=== PATIENT | male | born 1945 | race Caucasian/White ===

== ENCOUNTER 2016-03-16 09:06 | Outpatient (CLI) | payer OTHER ==
[~2016-03-16 09:06] MED LIST: ALPRAZOLAM0.25 MG PO; CHLORHEXIDINE PO; CLOBETASOL PRO0.055 TOP; ERYTHROMYCIN5 MG/GM OP; KLOR-CON 1010 MEQ PO; LASIX40 MG PO; LUNESTA1 MG PO; MIRALAX EQUIVAL17 GM PO; MORPHINE SULFAT15 MG PO; PREDNISONE5 MG PO; TOPROL XL50 MG PO; VITAMIN B-1000 MCG/M IM; XANAX0.25 MG PO
== END 2016-03-16 23:00 ==
LOC: LAB SRH 09:06
DX: B18.2 Chronic viral hepatitis C (principal)
CPT/HCPCS: 90074; 94060

== ENCOUNTER 2016-08-21 23:00 | Emergency (ER) | payer OTHER ==
--- NOTE | 2016-08-21 23:30 | DIAGNOSTIC IMAGING REPORT ---
PROCEDURE: CT HEAD WITHOUT CONTRAST INDICATION: VERTIGO/DIZZINESS TECHNIQUE: Noncontrast axial images with sagittal and coronal reformations. COMPARISON: Brain MRI 11/09/[address] 11/08/2015. FINDINGS: Mild cortical atrophy and white matter chronic ischemic changes. Normal ventricular system. No evidence of acute intracranial process. Mild right maxillary sinus disease. Mastoids are clear. No significant interval change. IMPRESSION: 1. No acute intracranial abnormality 2. Mild atrophy and white matter chronic ischemic changes 3. Findings discussed with Dr. Ruvalcaba at 11:28 p.m., [place] Standard Time
--- NOTE | 2016-08-22 00:33 | ED ORDER SUMMARY ---
..... Patient: RAVEN COOK [facility] VisitID: [id number] [place] [address] 71y, M Registration Date/Time: 08/21/2016 ORDER SHEET Weight: 108.8 kg (stated) Allergies: Mangoes, Sulfa Antibiotics GENERAL ORDERS: Exhaust Machine Operator (Continuous) (22:58 08/21/2016 PHutchinson DO) (0:16 JRomanelli R.N.) UA-Culture if indicated Urgent (22:59 08/21/2016 PHutchinson DO) (Ack 23:57 RKaruga) Cardiac Panel Stat (22:59 08/21/2016 PHutchinson DO) (23:44 JSanders R.N.) BNP Urgent (22:59 08/21/2016 PHutchinson DO) (23:44 JSanders R.N.) Amylase Urgent (22:59 08/21/2016 PHutchinson DO) (23:44 JSanders R.N.) TSH Urgent (22:59 08/21/2016 PHutchinson DO) (23:44 JSanders R.N.) Ethyl Alcohol Urgent (22:59 08/21/2016 PHutchinson DO) (23:44 JSanders R.N.) Pulse oximeter (22:59 08/21/2016 PHutchinson DO) (0:16 JRomanelli R.N.) EKG - ER Stat (22:59 08/21/2016 PHutchinson DO) (23:16 RKaruga) Vitals (22:59 08/21/2016 PHutchinson DO) (23:15 SSambou R.N.) CT Head wo Cont Urgent (23:04 08/21/2016 PHutchinson DO) (23:18 JRomanelli R.N.) MEDICATION ORDERS: IV FLUIDS: IV NS : initial bolus 1000 mL (1000 mL/hr), then 1000 mL/hr for X2 (NOW) (22:58 08/21/2016 PHutchinson DO) (23:17 SSambou R.N.) Zofran IV 4 mg (NOW) (22:59 08/21/2016 PHutchinson DO) (23:18 SSambou R.N.) Protonix IVP 40mg 40 mg (Mix in NS 10ml over 2min) (22:59 08/21/2016 [facility]) (23:18 SSambou R.N.) Valium IV 2 mg (HIGH ALERT MEDICATION, NOW) (23:05 08/21/2016 [facility]) (23:33 SSambpedro R.N.) Ativan IV 1 mg (HIGH ALERT MEDICATION, NOW) (00:27 08/22/2016 [facility]) (Cancelled: Other0:54 [facility]) ORDER SHEET NOTES: [Electronically signed by Sheriff Azeb Harris (00:55 08/22/2016)] [Electronically signed by Gaurang Ruvalcaba DO (00:57 08/22/2016)] [Electronically locked/signed by Sheriff Azeb Harris (00:55 08/22/2016)]
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
--- NOTE | 2016-08-22 00:33 | ED ORDER SUMMARY ---
..... Patient: RAVEN COOK OrderSheet [facility] VisitID: [id number] [place] [address] 71y, M Registration Date/Time: 08/21/2016 ORDER SHEET Weight: 108.8 kg (stated) Allergies: Mangoes, Sulfa Antibiotics GENERAL ORDERS: Education And Training Manager (Continuous) (22:58 08/21/2016 PHutchinson DO) (0:16 JRomanelli R.N.) UA-Culture if indicated Urgent (22:59 08/21/2016 PHutchinson DO) (Ack 23:57 RKaruga) Cardiac Panel Stat (22:59 08/21/2016 PHutchinson DO) (23:44 JSanders R.N.) BNP Urgent (22:59 08/21/2016 PHutchinson DO) (23:44 JSanders R.N.) Amylase Urgent (22:59 08/21/2016 PHutchinson DO) (23:44 JSanders R.N.) TSH Urgent (22:59 08/21/2016 PHutchinson DO) (23:44 JSanders R.N.) Ethyl Alcohol Urgent (22:59 08/21/2016 PHutchinson DO) (23:44 JSanders R.N.) Pulse oximeter (22:59 08/21/2016 PHutchinson DO) (0:16 JRomanelli R.N.) EKG - ER Stat (22:59 08/21/2016 PHutchinson DO) (23:16 RKaruga) Vitals (22:59 08/21/2016 PHutchinson DO) (23:15 SSambou R.N.) CT Head wo Cont Urgent (23:04 08/21/2016 PHutchinson DO) (23:18 JRomanelli R.N.) MEDICATION ORDERS: IV FLUIDS: IV NS : initial bolus 1000 mL (1000 mL/hr), then 1000 mL/hr for X2 (NOW) (22:58 08/21/2016 PHutchinson DO) (23:17 SSambou R.N.) Zofran IV 4 mg (NOW) (22:59 08/21/2016 PHutchinson DO) (23:18 SSambou R.N.) Protonix IVP 40mg 40 mg (Mix in NS 10ml over 2min) (22:59 08/21/2016 [facility]) (23:18 SSambou R.N.) Valium IV 2 mg (HIGH ALERT MEDICATION, NOW) (23:05 08/21/2016 [facility]) (23:33 SSambpedro R.N.) Ativan IV 1 mg (HIGH ALERT MEDICATION, NOW) (00:27 08/22/2016 [facility]) (Cancelled: Other0:54 [facility]) ORDER SHEET NOTES: [Electronically signed by Sheriff Azeb Harris (00:55 08/22/2016)] [Electronically signed by Gaurang Ruvalcaba DO (00:57 08/22/2016)] [Electronically locked/signed by Sheriff Azeb Harris (00:55 08/22/2016)]
--- NOTE | 2016-08-22 00:58 | ED MAR SUMMARY ---
..... Medication Administration Record [facility] [address] [place] [address] Patient: RAVEN COOK Visit ID: [id number] 71y, M Weight: 108.8 kg Height/Length: 76 in BMI: 29.2 ALLERGIES: Mangoes, Sulfa Antibiotics Start 23:17 08/21/2016 Sheriff Harris R.N. Medication Administered: IV NS (SALINE), Dose: IV Fluids, Bolus: 1000 mL wide open, Dispensed: 1000 mL bag, Site: #2 left wrist. Medication Ordered: IV NS : initial bolus 1000 mL (1000 mL/hr), then 1000 mL/hr for X2 (NOW). Given 23:18 08/21/2016 Sheriff Harris R.N. Medication Administered: ZOFRAN [IVP] (ONDANSETRON HCL), Dose: 4 mg IVP over 1 minute(s), Site: #1 left wrist. Medication Ordered: Zofran IV 4 mg (NOW). Given 23:18 08/21/2016 Sheriff Harris R.NShivani Medication Administered: PROTONIX 40MG [IVP] (PANTOPRAZOLE SODIUM), Dose: 40 mg IVP over 3 minute(s), Site: #1 left wrist. Medication Ordered: Protonix IVP 40mg 40 mg (Mix in NS 10ml over 2min). Given 23:32 08/21/2016 Sheriff Harris R.NShivani Medication Administered: VALIUM [IVP] (DIAZEPAM), Dose: 2 mg IVP over 1 minute(s), Site: #1 left wrist. Medication Ordered: Valium IV 2 mg (HIGH ALERT MEDICATION, NOW).
--- NOTE | 2016-08-22 00:58 | ED MED RECONCILIATION SUMMARY ---
Patient: RAVEN COOK Medication Reconciliation Report [facility] VisitID: [id number] [place] [address] 71y, M Registration Date/Time: 08/21/2016 Weight: 108.8 kg Height/Length: 76 in. BMI: 29.2 ALLERGIES: Mangoes, Sulfa Antibiotics The patient's Home Medications are listed below: CONTINUE TAKING THE FOLLOWING MEDICATIONS: ALPRAZolam Oral 1 mg, 3x a day ASA Oral 325mg daily Epclusa 400-100 mg, daily Lasix Oral 40 mg, leg swelling Metoprolol 100 mg, daily MiraLax Oral 1 packet, daily, not using Morphine IR 30mg, 4x a day Ondansetron Oral 4 mg, daily The source(s) of the original Home Medication information: patient The following Medications were given to the patient in the Emergency Department: IV NS IV Fluids bolus 1000 mL wide open, administered: 08/21/2016 11:17:00 PM Zofran [IVP] IVP 4 mg, administered: 08/21/2016 11:18:00 PM PROTONIX 40MG [IVP] IVP 40 mg, administered: 08/21/2016 11:18:00 PM Valium [IVP] IVP 2 mg, administered: 08/21/2016 11:32:00 PM The following Medications were prescribed to the patient: Zofran 4 mg: Take 1 orally every six hours as needed for nausea/vomiting. Dispense ten (10). No refills. Substitution is permissible. -- Gaurang Ruvalcaba DO Meclizine 25 mg: Take 1 tablet orally every 8 hours as needed for dizziness. Dispense thirty (30). No refills. -- Gaurang Ruvalcaba DO
--- NOTE | 2016-08-22 00:58 | ED MAR SUMMARY ---
..... Medication Administration Record [facility] [address] [place] [place] [address] Patient: RAVEN COOK Visit ID: [id number] 71y, M Weight: 108.8 kg Height/Length: 76 in BMI: 29.2 ALLERGIES: Mangoes, Sulfa Antibiotics Start 23:17 08/21/2016 Sheriff Harris R.N. Medication Administered: IV NS (SALINE), Dose: IV Fluids, Bolus: 1000 mL wide open, Dispensed: 1000 mL bag, Site: #2 left wrist. Medication Ordered: IV NS : initial bolus 1000 mL (1000 mL/hr), then 1000 mL/hr for X2 (NOW). Given 23:18 08/21/2016 Sheriff Harris R.N. Medication Administered: ZOFRAN [IVP] (ONDANSETRON HCL), Dose: 4 mg IVP over 1 minute(s), Site: #1 left wrist. Medication Ordered: Zofran IV 4 mg (NOW). Given 23:18 08/21/2016 Sheriff Harris R.NShivani Medication Administered: PROTONIX 40MG [IVP] (PANTOPRAZOLE SODIUM), Dose: 40 mg IVP over 3 minute(s), Site: #1 left wrist. Medication Ordered: Protonix IVP 40mg 40 mg (Mix in NS 10ml over 2min). Given 23:32 08/21/2016 Sheriff Harris R.NShivani Medication Administered: VALIUM [IVP] (DIAZEPAM), Dose: 2 mg IVP over 1 minute(s), Site: #1 left wrist. Medication Ordered: Valium IV 2 mg (HIGH ALERT MEDICATION, NOW).
--- NOTE | 2016-08-22 00:58 | ED DISCHARGE INSTRUCTIONS ---
Patient: RAVEN COOK General Instructions [facility] VisitID: [id number] [place] [address] 71y, M Registration Date/Time: 08/21/2016 Vomiting with nausea. Not intractable or bilious. Recurrent vertigo of unknown cause. Abnormal EKG: first degree heart block and left bundle branch block. Essential hypertension. INSTRUCTIONS Do not work for three days. Drink plenty of fluids. No alcohol. Warnings: Further evaluation is necessary in order to obtain test results and conduct further tests (You may need a repeat MRI of your brain and consideration for a mammogram). It is very important to follow up with a physician. SEDATIVE MEDICATION: You were given sedative medication during your visit. Do not drive or operate dangerous machinery. CONTROLLED SUBSTANCE WARNINGS. GENERAL WARNINGS: Return or contact your physician immediately if your condition worsens or changes unexpectedly, if not improving as expected, or if other problems arise. Your Current Medications: CONTINUE TAKING THE FOLLOWING MEDICATIONS: ALPRAZolam Oral : 1 mg 3x a day. ASA Oral : 325mg daily. Epclusa* : 400-100 mg daily. Lasix Oral : 40 mg, prn, leg swelling. Metoprolol* : 100 mg daily. MiraLax Oral : 1 packet daily, not using. Morphine IR* : 30mg 4x a day. Ondansetron Oral : 4 mg daily. Prescription Medications: Zofran 4 mg: Take 1 orally every six hours as needed for nausea/vomiting. Dispense ten (10). No refills. Substitution is permissible. Meclizine 25 mg: Take 1 tablet orally every 8 hours as needed for dizziness. Dispense thirty (30). No refills. Follow-up: Follow up with your doctor Phyllis tomorrow. Screening today revealed the patient's blood pressure to be in the hypertensive range. The patient should follow up with a primary care provider for blood pressure management. ADDITIONAL INFORMATION Vomiting [6Yr-Adult] Vomiting is a common symptom that may be due to different causes. These include gastroenteritis ("stomach flu"), food poisoning and gastritis. There are other more serious causes of vomiting which may be hard to diagnose early in the illness. Therefore, it is important to watch for the warning signs listed below. The main danger from repeated vomiting is dehydration. This is due to excess loss of water and minerals from the body. When this occurs, body fluids must be replaced. Home Care: If symptoms are severe, rest at home for the next 24 hours. You may use acetaminophen (Tylenol) or ibuprofen (Motrin, Advil) to control fever, unless another medicine was prescribed. [NOTE : If you have chronic liver or kidney disease or ever had a stomach ulcer or GI bleeding, talk with your doctor before using these medicines.] (Aspirin should never be used in anyone under 18 years of age who is ill with a fever. It may cause severe liver damage.) Avoid tobacco and alcohol use, which may worsen your symptoms. If medicines for vomiting were prescribed, take as directed. Once vomiting stops, then follow these guidelines: During The First 12-24 Hours follow the diet below: FRUIT JUICES: Apple, grape juice, clear fruit drinks, and electrolyte replacement drinks. BEVERAGES: Soft drinks without caffeine; mineral water (plain or flavored), decaffeinated tea and coffee. SOUPS: Clear broth, consomm and bouillon DESSERTS: Plain gelatin, popsicles and fruit juice bars. As you feel better, you may add 6-8 ounces of yogurt per day. During The Next 24 Hours you may add the following to the above: Hot cereal, plain toast, bread, rolls, crackers Plain noodles, rice, mashed potatoes, chicken noodle or rice soup Unsweetened canned fruit (avoid pineapple), bananas Limit caffeine and chocolate. No spices or seasonings except salt. During The Next 24 Hours Gradually resume a normal diet, as you feel better and your symptoms lessen. Follow Up with your doctor as advised if you are not improving over the next 2-3 days. Get Prompt Medical Attention if any of the following occur: Constant right-sided lower abdominal pain or increasing general abdominal pain Continued vomiting (unable to keep liquids down) for 24 hours Frequent diarrhea (more than 5 times a day); blood (red or black color) or mucus in diarrhea Reduced urine output or extreme thirst Weakness, dizziness or fainting Unusually drowsy or confused Fever of 100.4F (38C) oral or higher, not better with fever medication Yellow color of the eyes or skin High Blood Pressure --Established High Blood Pressure (Hypertension) is a chronic disease. The cause is unknown in most cases. It can usually be controlled with lifestyle changes and/or medicines. Symptoms of high blood pressure may include headache, dizziness, visual changes, chest pain and shortness of breath. Sometimes it causes no symptoms at all. However, even if there are no symptoms, untreated high blood pressure increases the risk of heart attack, also known as acute myocardial infarction, or AMI, and stroke. It is a serious health risk and should not be ignored. A normal blood pressure is 120/80 or less. The first (top) number is the "systolic" pressure. The second (bottom) number is the "diastolic" pressure. Hypertension exists when either the top number is 140 or higher, OR the bottom number is 90 or higher on repeated measurements. Home Care: All patients with high blood pressure should do the following to lower their pressure. If you are on medicines, then these methods may reduce or eliminate your need for medicines in the future. Begin a weight loss program if you are overweight. Reduce your salt intake. Avoid high salt foods (olives, pickles, smoked meats, salted potato chips, etc.). Do not add salt to your food at the table. Use only small amounts of salt when cooking. Begin an exercise program. Discuss with your doctor what type of exercise program would be best for you. It doesn't have to be difficult. Even brisk walking for 20 minutes three times a week is a good form of exercise. Avoid medicines which contain heart stimulants. This includes many cold and sinus decongestant pills and sprays as well as diet pills. Check the warnings about hypertension on the label. Stimulants such as amphetamine or cocaine could be lethal for someone with hypertension. Never take these. Limit your caffeine intake or switch to caffeine-free products. Stop smoking. If you are a long-time smoker, this can be hard. Enroll in a stop-smoking program to improve your chance of success. Learning how to handle stress better is an important part of any program to lower blood pressure. Learn about relaxation methods such as meditation, yoga or biofeedback. If medicines were prescribed, take them exactly as directed. Missing doses may cause your blood pressure get out of control. Consider buying an automatic blood pressure machine (available at most pharmacies). Use this to monitor your blood pressure at home and report the results to your doctor. Follow Up: Regular visits to your own physician for blood pressure checks and medicine adjustment is an important part of your care. Make a follow-up appointment as directed by our staff. Get Prompt Medical Attention if any of the following occur: Chest pain or shortness of breath Severe headache Throbbing or rushing sound in the ears Nosebleed Sudden severe abdominal pain Extreme drowsiness, confusion or fainting Dizziness or vertigo (dizziness with spinning sensation) Weakness of an arm or leg or one side of the face Difficulty with speech or vision Vertigo [Unknown Cause] The "inner ear" is located behind the middle ear. It is part of the balance center of your body. Disease of the inner ear causes vertigo -- a false feeling of motion. It feels as if you or the room is spinning. A vertigo attack may cause sudden nausea, vomiting and heavy sweating. Severe vertigo causes a loss of balance and can cause you to fall. During vertigo, small head movements and changes in body position will often make the symptoms worse. The causes of vertigo include: Inflammation of the inner ear Disease of the nerves to the inner ear Movement of calcium particles in the inner ear Poor blood flow to the balance centers of the brain An episode of vertigo may last seconds, minutes or hours. Once you are over the first episode, it may never return. However, sometimes symptoms may recur off and on over several weeks or longer, depending on the cause. There may be ringing in the ears or hearing loss, which may be temporary or permanent. Home Care: If symptoms are severe, rest quietly in bed. Change positions very slowly. There is usually one position that will feel best, such as lying on one side or lying on your back with your head slightly raised on pillows. Do not drive or work with dangerous machinery for one week after symptoms go away, in case the symptoms suddenly return. Take medicine as prescribed to relieve your symptoms. Unless another medicine was prescribed for nausea, vomiting and vertigo, you may use [id number] motion sickness pills, such as meclizine (Bonine, Bonamine, Antivert) or dimenhydrinate (Dramamine). Follow Up with your doctor or as directed by our staff. Tell the doctor if your ears keep ringing, or if your hearing does not return to normal. Get Prompt Medical Attention if any of the following occur: Vertigo gets worse and is not controlled by medicine prescribed Repeated vomiting not relieved by medicine prescribed Increased weakness or fainting Severe headache or unusually drowsy or confused Weakness of an arm or leg or one side of the face Difficulty with speech or vision Ondansetron Oral disintegrating tablet What is this medicine? ONDANSETRON (on IRON se eusebio) is used to treat nausea and vomiting caused by chemotherapy. It is also used to prevent or treat nausea and vomiting after surgery. How should I use this medicine? These tablets are made to dissolve in the mouth. Do not try to push the tablet through the foil backing. With dry hands, peel away the foil backing and gently remove the tablet. Place the tablet in the mouth and allow it to dissolve, then swallow. While you may take these tablets with water, it is not necessary to do so. Talk to your sports book board attendant regarding the use of this medicine in children. Special care may be needed. What side effects may I notice from receiving this medicine? Side effects that you should report to your doctor or health direct care counselor as soon as possible: allergic reactions like skin rash, itching or hives, swelling of the face, lips, or tongue breathing problems dizziness fast or irregular heartbeat feeling faint or lightheaded, falls fever and chills swelling of the hands and feet tightness in the chest Side effects that usually do not require medical attention (report to your doctor or health direct care counselor if they continue or are bothersome): constipation or diarrhea headache What may interact with this medicine? Do not take this medicine with any of the following medications: -apomorphine -cisapride -dofetilide -dronedarone -pimozide -thioridazine -ziprasidone This medicine may also interact with the following medications: -carbamazepine -phenytoin -rifampicin -tramadol -other medicines that prolong the QT interval (cause an abnormal heart rhythm) What if I miss a dose? If you miss a dose, take it as soon as you can. If it is almost time for your next dose, take only that dose. Do not take double or extra doses. Where should I keep my medicine? Keep out of the reach of children. Store between 2 and 30 degrees C (36 and 86 degrees F). Throw away any unused medicine after the expiration date. What should I tell my health care provider before I take this medicine? They need to know if you have any of these conditions: heart disease history of irregular heartbeat liver disease low levels of magnesium or potassium in the blood an unusual or allergic reaction to ondansetron, granisetron, other medicines, foods, dyes, or preservatives or trying to get breast-feeding What should I watch for while using this medicine? Check with your doctor or health direct care counselor as soon as you can if you have any sign of an allergic reaction. Meclizine Hydrochloride Oral tablet What is this medicine? MECLIZINE (CHEYENNE damon) is an antihistamine. It is used to prevent nausea, vomiting, or dizziness caused by motion sickness. It is also used to prevent and treat vertigo (extreme dizziness or a feeling that you or your surroundings are tilting or spinning around). How should I use this medicine? Take this medicine by mouth with a glass of water. Follow the directions on the prescription label. If you are using this medicine to prevent motion sickness, take the dose at least 1 hour before travel. If it upsets your stomach, take it with food or milk. Take your doses at regular intervals. Do not take your medicine more often than directed. Talk to your sports book board attendant regarding the use of this medicine in children. Special care may be needed. What side effects may I notice from receiving this medicine? Side effects that you should report to your doctor or health direct care counselor as soon as possible: fainting spells fast or irregular heartbeat Side effects that usually do not require medical attention (report to your doctor or health direct care counselor if they continue or are bothersome): constipation difficulty passing urine difficulty sleeping headache stomach upset What may interact with this medicine? barbiturate medicines for inducing sleep or treating seizures digoxin medicines for anxiety or sleeping problems, like alprazolam, diazepam or temazepam medicines for hay fever and other allergies medicines for mental depression medicines for movement abnormalities as in Parkinson's disease, or for stomach problems medicines for pain medicines that relax muscles What if I miss a dose? If you miss a dose, take it as soon as you can. If it is almost time for your next dose, take only that dose. Do not take double or extra doses. Where should I keep my medicine? Keep out of the reach of children. Store at room temperature between 15 and 30 degrees C (59 and 86 degrees F). Keep container tightly closed. Throw away any unused medicine after the expiration date. What should I tell my health care provider before I take this medicine? They need to know if you have any of these conditions: asthma glaucoma prostate trouble stomach problems urinary problems an unusual or allergic reaction to meclizine, other medicines, foods, dyes, or preservatives or trying to get breast-feeding What should I watch for while using this medicine? If you are taking this medicine on a regular schedule, visit your doctor or health direct care counselor for regular checks on your progress. You may get dizzy, drowsy or have blurred vision. Do not drive, use machinery, or do anything that needs mental alertness until you know how this medicine affects you. Do not stand or sit up quickly, especially if you are an older patient. This reduces the risk of dizzy or fainting spells. Alcohol can increase possible dizziness. Avoid alcoholic drinks. Your mouth may get dry. Chewing sugarless gum or sucking hard candy, and drinking plenty of water may help. Contact your doctor if the problem does not go away or is severe. This medicine may cause dry eyes and blurred vision. If you wear contact lenses you may feel some discomfort. Lubricating drops may help. See your eye doctor if the problem does not go away or is severe. You have been given the following additional information: Vomiting (6Y-Adult) Hypertension, Established Vertigo, Unspecified Ondansetron Oral disintegrating tablet Meclizine Hydrochloride Oral tablet Do not work for three days. (Electronically signed by Gaurang Ruvalcaba DO 08/22/2016 0:57)
--- NOTE | 2016-08-22 00:58 | ED MED RECONCILIATION SUMMARY ---
Patient: RAVEN COOK Medication Reconciliation Report [facility] VisitID: [id number] [place] [address] 71y, M Registration Date/Time: 08/21/2016 Weight: 108.8 kg Height/Length: 76 in. BMI: 29.2 ALLERGIES: Mangoes, Sulfa Antibiotics The patient's Home Medications are listed below: CONTINUE TAKING THE FOLLOWING MEDICATIONS: ALPRAZolam Oral 1 mg, 3x a day ASA Oral 325mg daily Epclusa 400-100 mg, daily Lasix Oral 40 mg, leg swelling Metoprolol 100 mg, daily MiraLax Oral 1 packet, daily, not using Morphine IR 30mg, 4x a day Ondansetron Oral 4 mg, daily The source(s) of the original Home Medication information: patient The following Medications were given to the patient in the Emergency Department: IV NS IV Fluids bolus 1000 mL wide open, administered: 08/21/2016 11:17:00 PM Zofran [IVP] IVP 4 mg, administered: 08/21/2016 11:18:00 PM PROTONIX 40MG [IVP] IVP 40 mg, administered: 08/21/2016 11:18:00 PM Valium [IVP] IVP 2 mg, administered: 08/21/2016 11:32:00 PM The following Medications were prescribed to the patient: Zofran 4 mg: Take 1 orally every six hours as needed for nausea/vomiting. Dispense ten (10). No refills. Substitution is permissible. -- Gaurang Ruvalcaba DO Meclizine 25 mg: Take 1 tablet orally every 8 hours as needed for dizziness. Dispense thirty (30). No refills. -- Gaurang Ruvalcaba DO
== END 2016-08-22 00:50 | disposition home or self-care (01) ==
LOC: ED SRH 23:00
DX: R11.2 Nausea with vomiting, unspecified (principal); R42 Dizziness and giddiness; I44.0 Atrioventricular block, first degree; I44.7 Left bundle-branch block, unspecified; I10 Essential (primary) hypertension; Z79.82 Long term (current) use of aspirin; Z79.899 Other long term (current) drug therapy; Z79.891 Long term (current) use of opiate analgesic; Z91.018 Allergy to other foods; Z88.2 Allergy status to sulfonamides
CPT/HCPCS: 90100; 90616; 91320; 92010; 92530; 92610; 92720; 93140; 95059